=== PATIENT | male | born 1975 | race Hispanic/Latino ===

== ENCOUNTER 2017-04-21 00:25 | Emergency (ER) | payer BC ==
[2017-04-21 03:18] VITALS: BP 127/87; PULSE 75; RESP 16; TEMP 98.9; O2SAT 98
[2017-04-21] MEDS ORDERED: Naproxen 500 MG TAB PO STA (04:21)
[2017-04-21] MEDS ORDERED: Naproxen 500 MG TAB PO ONE (04:37)
--- NOTE | 2017-04-21 04:56 | ED PDOC ---
Lower Extremity Pain/Injury Time Seen by Provider: 04/21/17 03:53 Chief Complaint (Nursing): Lower Extremity Problem/Injury Chief Complaint (Provider): Right Knee Pain History Per: Patient History/Exam Limitations: no limitations Onset/Duration Of Symptoms: Persistent Current Symptoms Are (Timing): Still Present Additional Complaint(s): 41 year old male presents to ED with complaints of atraumatic right knee pain and has a history of right knee pain. Notes swelling and limited mobility to pain to the area. Patient also complains of epigastric pain x1 year. PCP: None Past Medical History Reviewed: Historical Data, Nursing Documentation, Vital Signs Vital Signs: Last Vital Signs Temp 98.9 F 04/21/17 03:13 Pulse 75 04/21/17 03:13 Resp 16 04/21/17 03:13 BP 127/87 04/21/17 03:13 Pulse Ox 98 04/21/17 03:13 - Medical History PMH: Chronic Pain (chronic right knee pain) - Family History Family History: States: Unknown Family Hx - Living Arrangements Living Arrangements: With Family - Home Medications Home Medications: Ambulatory Orders Medication Instructions Recorded Meloxicam [Mobic] 15 mg PO DAILY #30 tab 04/21/17 Omeprazole 20 mg PO DAILY #30 capsule. 04/21/17 - Allergies Allergies/Adverse Reactions: Allergies Allergy/AdvReac Type Severity Reaction Status Date / Time No Known Allergies Allergy Verified 04/21/17 03:18 Wells Criteria for PE - Wells Criteria for Pulmonary Embolism Heart Rate >100: No Hemoptysis: No Total Score: 0 Review of Systems ROS Statement: Except As Marked, All Systems Reviewed And Found Negative Musculoskeletal: Positive for: Leg Pain ((+) right knee pain with limited ROM secondary to swelling) Physical Exam - Reviewed Nursing Documentation Reviewed: Yes Vital Signs Reviewed: Yes - Physical Exam Appears: Positive for: Well, Non-toxic, No Acute Distress Skin: Positive for: Normal Color, Warm, Dry Respiratory: Negative for: Respiratory Distress Extremity: Positive for: Normal ROM (near full ROM of right knee), Swelling ((+ ) swelling of right knee), Other ((-) varus/valgus stresses or erythema. (+) effusion) Neurologic/Psych: Positive for: Alert, Oriented, Motor/Sensory Deficits - ECG O2 Sat by Pulse Oximetry: 98 (RA) Pulse Ox Interpretation: Normal Medical Decision Making Medical Decision Makin Initial impression: arthritis v ligamentous injury Initial plan: * XR KNEE RT * Naproxen 500mg PO * Re-eval 530 xray appears negative told to f/u w/ ortho and PMD return precautions discussed Scribe Attestation: Documented by Carol Centeno acting as a scribe for Joni Gardner MD. Scribe Attestation: All medical record entries made by the Scribe were at my direction and personally dictated by me. I have reviewed the chart and agree that the record accurately reflects my personal performance of the history, physical exam, medical decision making, and the department course for this patient. I have also personally directed, reviewed, and agree with the discharge instructions and disposition. Disposition - Clinical Impression Clinical Impression: Knee swelling - Disposition Referrals: Danny Rouse MD [Staff Provider] - Seman,Jacinda Archer MD [Staff Provider] - Disposition Time: 05:30 Condition: IMPROVED Prescriptions: Meloxicam [Mobic] 15 mg PO DAILY #30 tab Omeprazole 20 mg PO DAILY #30 capsule. Instructions: Swollen Knee Joint (ED), Knee Pain (ED), Arthralgia (ED) Forms: [facility] ([place]ian)
--- NOTE | 2017-04-21 10:57 | RAD ---
PROCEDURE: Right Knee Radiographs. HISTORY: R knee swelling COMPARISON: None. FINDINGS: BONES: No acute fracture. JOINTS: Unremarkable. JOINT EFFUSION: Small suprapatellar effusion. OTHER FINDINGS: None. IMPRESSION: Small suprapatellar joint effusion without demonstrated fracture or dislocation.
== END 2017-04-21 05:39 | disposition home or self-care (01) ==
LOC: H.ER 00:25
DX: R22.41 Localized swelling, mass and lump, right lower limb (principal); G89.29 Other chronic pain

== ENCOUNTER 2017-06-06 08:47 | Day surgery (SDC) | payer BC ==
[2017-06-06] MEDS ORDERED: Lactated Ringer's 500 ML IV ONE (08:57)
[2017-06-06] MEDS ORDERED: Midazolam 2 MG/2 ML VIAL ONE (11:04)
[2017-06-06] MEDS ORDERED: Propofol 10 mg/ml Inj (20 ML) ONE (11:04)
[2017-06-06 11:21] VITALS: TEMP 97
[2017-06-06 11:51] VITALS: BP 104/62; PULSE 62; RESP 17; O2SAT 98
== END 2017-06-06 11:53 | disposition home or self-care (01) ==
LOC: H.ENDO 08:47
PROVIDERS: ATTEND Internal Medicine Gastroenterology
DX: K30 Functional dyspepsia (principal); K29.50 Unspecified chronic gastritis without bleeding
CPT/HCPCS: 43239; 88305; J2250; J2704; J7120